=== PATIENT | female | born 1995 | race Hispanic/Latino ===

== ENCOUNTER 2019-07-21 12:25 | Outpatient (CLI) | payer OTHER ==
--- NOTE | 2019-07-21 15:50 | NM ---
HEPATOBILIARY SCAN: HISTORY:Epigastric pain RADIOPHARMACEUTICAL: 5.2 mCi Technetium 99m Mebrofenin injected intravenously FINDINGS: There is normal tracer extraction by the liver with normal excretion into the biliary tracts and smal l bowel loops and normal filling of the gallbladder. The calculated gallbladder ejection fraction following an oral fatty meal measures 88%. IMPRESSION:Normal exam.
== END 2019-07-21 12:26 | disposition home or self-care (01) ==
LOC: NM 12:25
PROVIDERS: ATTEND Internal Medicine Gastroenterology
DX: R10.13 Epigastric pain (principal)
CPT/HCPCS: 78227; A9537